=== PATIENT | female | born 1945 | race Caucasian/White ===

== ENCOUNTER 2017-10-21 00:51 | Observation (INO) ==
--- NOTE | 2017-10-21 01:15 | Emergency Department Note ---
Disposition Clinical Impression: Atrial fibrillation with RVR Disposition: Admitted As Inpatient Condition: Good Referrals: Obi Ellis MD [Primary Care Provider] - Forms: ED Satisfaction Letter Time of Disposition: 02:19 Arrhythmia/Palpitations HPI - General Chief Complaint: ED Arrhythmia/Palpitations Stated Complaint: Chest Pain Time Seen by Provider: 10/21/17 01:05 Source: patient, family Mode of arrival: ambulatory Limitations: no limitations Nursing Notes Reviewed: Yes Vital Signs Reviewed: Yes - History of Present Illness HPI Narrative: 72-year-old white female with onset of palpitations around midnight tonight. No chest pain. No shortness of breath. She had recent sinusitis and just finished a prescription for Keflex yesterday. No other symptoms or complaints. No history of atrial fibrillation. 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 Duration: intermittent Severity: moderate Context: occurred during rest Associated symptoms: Reports: denies other symptoms - Related Data Home Medications Medication Instructions Recorded Confirmed Ascorbic Acid [Vitamin C] 1,000 units PO DAILY 07/18/15 10/10/17 Atorvastatin [Lipitor] 20 mg PO HS 07/18/15 10/10/17 Canagliflozin [Invokana] 100 mg PO DAILY 07/18/15 10/10/17 Carvedilol [Coreg] 3.125 tab PO DAILY 07/18/15 10/10/17 Celecoxib [Celebrex] 200 mg PO DAILY 07/18/15 10/10/17 Cholecalciferol (Vitamin D3) 2,000 mg PO DAILY 07/18/15 10/10/17 [Vitamin D] Cyanocobalamin (Vitamin B-12) 1,000 mcg PO DAILY 07/18/15 10/10/17 [Vitamin B-12] Losartan [Cozaar] 25 mg PO DAILY 07/18/15 10/10/17 [place]-3S/Dha/Epa/Fish Oil [Fish 600 mg PO DAILY 07/18/15 10/10/17 Oil 1,200 mg Softgel] Omeprazole [PriLOSEC] 20 mg PO DAILY 07/18/15 10/10/17 SitaGLIPtin [Januvia] 100 mg PO DAILY 07/18/15 10/10/17 Vit C/Vit E/Lutein/Min/[place]-3 1 cap PO DAILY 01/04/17 10/10/17 [Ocuvite Softgel] Buspirone HCl [Buspar] 2.5 mg PO DAILY 09/14/17 10/10/17 Loratadine [Allergy Relief] 10 mg PO DAILY 10/10/17 10/10/17 Previous Rx's Medication Instructions Recorded Cephalexin [Keflex] 500 mg PO TID #30 capsule 10/10/17 Meclizine [Antivert] 12.5 mg PO TID PRN #15 tablet 10/10/17 predniSONE [PredniSONE] 10 mg PO DAILY #8 tablet 10/10/17 Allergies Allergy/AdvReac Type Severity Reaction Status Date / Time Penicillins [PCN] Allergy Rash Verified 10/10/17 13:08 acetaminophen [From Percocet] AdvReac Nausea Verified 10/10/17 13:08 Oxycodone [From Percocet] AdvReac Vomiting Verified 10/10/17 13:08 All systems ED: reviewed and negative except as stated. Constitutional: Denies: fever, chills ENT ED: Denies: ear pain, throat pain Cardiovascular: Reports: palpitations. Denies: chest pain Respiratory: Denies: cough, dyspnea Gastrointestinal: Denies: abdominal pain, nausea, vomiting Neurological: Denies: weakness, numbness, paresthesias Past Medical History - Past Medical History Medical history: Reports: no medical history, diabetes, hypertension Surgical history: Reports: cholecystectomy, hysterectomy, other Psychiatric history: Reports: anxiety - Social History Smoking Status: Never smoker Smokeless Tobacco Status: No Alcohol use: Reports: none Drug use: Reports: none Physical Exam - General Limitations: no limitations General appearance: alert, in no apparent distress - Head Head exam: atraumatic, normocephalic - Eye Eye exam: Present: PERRL, EOMI - ENT ENT exam: normal oropharynx, mucous membranes moist - Neck Neck exam: Present: normal inspection, full ROM, trachea midline. Absent: lymphadenopathy, thyromegaly - Respiratory Respiratory exam: Present: normal lung sounds bilaterally. Absent: respiratory distress, wheezes - Cardiovascular Cardiovascular exam: Present: tachycardia (1:15), irregular rhythm. Absent: systolic murmur, diastolic murmur, gallop - Abdominal Exam Abdominal exam: Present: soft, Non-Tender, normal bowel sounds. Absent: organomegaly, mass - Extremities Exam Extremities exam: Present: normal inspection, full ROM, normal capillary refill. Absent: pedal edema - Neurological Exam Neurological exam: Present: alert, oriented X3, normal gait. Absent: motor sensory deficit - Psychiatric Psychiatric exam: Present: normal affect, normal mood - Skin Skin exam: Present: warm, dry, intact, normal color Course - Reevaluation(s) Reevaluation #1: Heart rate is improved, it is currently 80, she still in atrial fibrillation. She is otherwise asymptomatic. I discussed the need for hospitalization with the patient and her . She is agreeable. I talked with Dr. Flor. He is accepted patient for observation admission. Time: 02:16 Vital Signs Temperature 98.7 F 10/21/17 00:58 Pulse Rate 94 10/21/17 00:58 Respiratory Rate 16 10/21/17 00:58 Blood Pressure 169/96 10/21/17 00:58 O2 Sat by Pulse Oximetry 99 10/21/17 00:58 Temperature 98.7 F 10/21/17 02:15 Pulse Rate 88 10/21/17 02:15 Respiratory Rate 16 10/21/17 02:15 Blood Pressure 153/76 10/21/17 02:15 O2 Sat by Pulse Oximetry 99 10/21/17 02:15 Oxygen Delivery Oxygen Delivery Room Air Arrhythmia/Palpitations - [facility] Narrative Medical decision making narrative: She was bolused with Cardizem and placed on a Cardizem drip. Her heart rate has decreased to 80. She will be admitted for observation for further treatment. I have discussed the case with Dr. Flor. He has accepted patient for observation admission. She will be given a dose of digoxin 0.25 mg IV prior to transfer to the floor. - Differential Diagnosis Differential Diagnosis: Likely: palpitations, anxiety, sinus tachycardia, artial arrhythmia, ventricular premature beats, supraventricular tachycardia, metabolic/electrolyte disturbance - Lab Data Lab results reviewed: Yes I reviewed the patient's lab results. Result diagrams: 10/21/17 01:26 10/21/17 01:26 Lab Results 10/21/17 10/21/17 10/21/17 Range/Units 01:26 01:26 01:26 WBC 6.8 (4.3-11.1) K/mcL RBC 5.06 H (3.82-4.97) M/mcL Hgb 15.1 (11.5-15.4) g/dL Hct 45.4 H (35.3-44.9) % MCV 89.7 (83.0-100.0) fL MCH 29.8 (28.0-33.3) pg MCHC 33.3 (31.6-35.5) g/dL RDW 13.2 (11.5-14.5) % Plt Count 148 (140-400) K/mcL MPV 10.9 (9.4-12.4) fL Immature Gran % 0.6 (0-4) % Seg Neutrophils % 48.6 % Lymphocytes % 38.8 % Monocytes % 9.3 % Eosinophils % 2.1 % Basophils % 0.6 % Neutrophils # 3.3 (1.6-8.9) K/mcL Lymphocytes # 2.6 (0.6-4.6) K/mcL Monocytes # 0.6 (0.0-1.3) K/mcL Eosinophils # 0.1 (0.0-0.6) K/mcL Basophils # 0.0 (0.0-0.2) K/mcL PT 11.5 (9.4-12.1) Seconds INR 1.1 APTT 29.8 (26.0-36.0) Seconds Sodium 141 (136-145) mEq/L Potassium 4.1 (3.5-4.5) mEq/L Chloride 105 (98-109) mEq/L Carbon Dioxide 22 (19-29) mEq/L BUN 18 (7-20) mg/dL Creatinine 0.83 (0.57-1.11) mg/dL Est GFR ( Amer) > 60 (> 60) Est GFR (Non-Af Amer) > 60 (> 60) BUN/Creatinine Ratio 22 (6-26) Glucose 103 H (70-99) mg/dL Calculated Osmolality 294 (280-300) Calcium 10.0 (8.6-10.8) mg/dL Total Bilirubin 0.6 (0.2-1.2) mg/dL AST 21 (5-34) Units/L ALT 18 (0-55) Units/L Alkaline Phosphatase 92 (38-126) Units/L Troponin I (0-0.03) ng/mL B-Natriuretic Peptide (0-100) pg/mL Serum Total Protein 8.7 H (6.0-8.3) g/dL Albumin 4.2 (3.5-5.0) g/dL Globulin 4.5 H (2.4-3.5) g/dL Albumin/Globulin Ratio 0.9 L (1.1-2.2) 10/21/17 10/21/17 Range/Units 01:26 01:26 WBC (4.3-11.1) K/mcL RBC (3.82-4.97) M/mcL Hgb (11.5-15.4) g/dL Hct (35.3-44.9) % MCV (83.0-100.0) fL MCH (28.0-33.3) pg MCHC (31.6-35.5) g/dL RDW (11.5-14.5) % Plt Count (140-400) K/mcL MPV (9.4-12.4) fL Immature Gran % (0-4) % Seg Neutrophils % % Lymphocytes % % Monocytes % % Eosinophils % % Basophils % % Neutrophils # (1.6-8.9) K/mcL Lymphocytes # (0.6-4.6) K/mcL Monocytes # (0.0-1.3) K/mcL Eosinophils # (0.0-0.6) K/mcL Basophils # (0.0-0.2) K/mcL PT (9.4-12.1) Seconds INR APTT (26.0-36.0) Seconds Sodium (136-145) mEq/L Potassium (3.5-4.5) mEq/L Chloride (98-109) mEq/L Carbon Dioxide (19-29) mEq/L BUN (7-20) mg/dL Creatinine (0.57-1.11) mg/dL Est GFR ( Amer) (> 60) Est GFR (Non-Af Amer) (> 60) BUN/Creatinine Ratio (6-26) Glucose (70-99) mg/dL Calculated Osmolality (280-300) Calcium (8.6-10.8) mg/dL Total Bilirubin (0.2-1.2) mg/dL AST (5-34) Units/L ALT (0-55) Units/L Alkaline Phosphatase (38-126) Units/L Troponin I 0.02 (0-0.03) ng/mL B-Natriuretic Peptide 126 H (0-100) pg/mL Serum Total Protein (6.0-8.3) g/dL Albumin (3.5-5.0) g/dL Globulin (2.4-3.5) g/dL Albumin/Globulin Ratio (1.1-2.2) - Radiology Data Radiology results reviewed: Yes I reviewed the patient's radiology results. - EKG Data EKG attestation: Yes I reviewed and interpreted this EKG. EKG results narrative: Atrial fibrillation, rate of 88, minimal ST segment segment depression over the lateral precordium. Rhythm strip shows atrial fibrillation with a rate of 88, a QRS 98 ms with no other ectopy as interpreted by me. No old EKG available for comparison. Critical Care Time Critical Care Time: Yes Total Critical Care Time: 30 Attestation: Critical care time includes my initial evaluation, reassessment, review of laboratory, EKG, x-ray, consultation with the patient regarding admission, consultation with the hospitalist regarding admission. No procedures were included
[2017-10-21 01:52] LABS: Basophils % 0.6 %; Eosinophils # 0.1 K/mcL (0.0-0.6); Eosinophils % 2.1 %; Hematocrit 45.4 % (35.3-44.9); Hemoglobin 15.1 g/dL (11.5-15.4); Immature Granulocytes % 0.6 % (0-4); Lymphocytes # 2.6 K/mcL (0.6-4.6); Lymphocytes % 38.8 %; Mean Corpuscular HGB Conc 33.3 g/dL (31.6-35.5); Mean Corpuscular Hemoglobin 29.8 pg (28.0-33.3); Mean Corpuscular Volume 89.7 fL (83.0-100.0); Mean Platelet Volume 10.9 fL (9.4-12.4); Monocytes # 0.6 K/mcL (0.0-1.3); Monocytes % 9.3 %; Neutrophils # 3.3 K/mcL (1.6-8.9); Platelet Count 148 K/mcL (140-400); Red Blood Count 5.06 M/mcL (3.82-4.97); Red Cell Distribution Width 13.2 % (11.5-14.5); Segmented Neutrophils % 48.6 %
[2017-10-21 01:53] LABS: INR 1.1; Prothrombin Time 11.5 Seconds (9.4-12.1)
[2017-10-21 01:56] LABS: Activated Partial Thrombo Time 29.8 Seconds (26.0-36.0)
[2017-10-21 02:05] LABS: Alanine Aminotransferase 18 Units/L (0-55); Albumin 4.2 g/dL (3.5-5.0); Albumin/Globulin Ratio 0.9 (1.1-2.2); Alkaline Phosphatase 92 Units/L (38-126); Aspartate Amino Transferase 21 Units/L (5-34); BUN/Creatinine Ratio 22 (6-26); Bilirubin,Total 0.6 mg/dL (0.2-1.2); Blood Urea Nitrogen 18 mg/dL (7-20); Carbon Dioxide 22 mEq/L (19-29); Chloride 105 mEq/L (98-109); Globulin 4.5 g/dL (2.4-3.5); Glucose 103 mg/dL (70-99); Osmolality,Calculated 294 (280-300); Potassium 4.1 mEq/L (3.5-4.5); Sodium 141 mEq/L (136-145); Total Protein 8.7 g/dL (6.0-8.3); eGFR For African Americans > 60 (> 60); eGFR For Non-African Americans > 60 (> 60)
[2017-10-21] MEDS ORDERED: *HR* Digoxin 0.5 MG/2 ML AMPUL IVP ONE (02:20)
[2017-10-21] MEDS ORDERED: *HR* Enoxaparin 40 MG/0.4 ML SYRINGE SQ ONE (02:20)
[2017-10-21] MEDS ORDERED: *HR* Enoxaparin 100 MG/ML SYRINGE SQ ONE (02:30)
[2017-10-21] MEDS ORDERED: Naloxone 0.4 MG/ML INJ IVP PRN (04:28)
[2017-10-21] MEDS ORDERED: 0.9 % Sodium Chloride 1,000 ML IVC SCH (04:28)
[2017-10-21] MEDS: [Fish Oil 1,200 Mg PO SCH (07:45)
[2017-10-21] MEDS: Loratadine 10 MG TABLET PO SCH (07:54)
[2017-10-21] MEDS: Cholecalciferol (D-3) 1,000 UNIT TABLET PO SCH (07:54)
[2017-10-21] MEDS: Cyanocobalamin (B-12) 1,000 MCG TABLET PO SCH (07:54)
[2017-10-21] MEDS: Multivit/Ca/Min/Fe/FA 1 TAB TABLET PO SCH (07:54)
[2017-10-21] MEDS ORDERED: *HR* Glimepiride 2 MG TABLET PO SCH (09:00)
[2017-10-21] MEDS ORDERED: *HR* SitaGLIPtin 100 MG TABLET PO SCH (09:00)
--- NOTE | 2017-10-21 14:19 | Internal Med History&Physical ---
Date of Encounter: 10/21/17 Time of Encounter: 13:50 Assessment and Plan (1) Atrial fibrillation with RVR Current visit: Yes Status: Acute Now resolved and back in NSR. Will order TSH and continue telemetry monitoring. We will change from Coreg to Toprol-XL 25 mg daily. (2) Hypertension Current visit: Yes Status: Chronic Continue Cozaar and changed to Toprol as per above. Qualifiers: Hypertension type: essential hypertension Qualified Code(s): I10 - Essential (primary) hypertension (3) DM type 2 (diabetes mellitus, type 2) Current visit: Yes Status: Chronic Hemoglobin A1c was 6.1% on 05/25/2017. Continue Januvia and Amaryl. Qualifiers: Diabetes mellitus complication status: without complication Diabetes mellitus sample driller insulin use: without usp use Qualified Code(s): E11.9 - Type 2 diabetes mellitus without complications Internal Medicine - H&P: HPI Chief complaint: Palpitations Admitted From: Emergency Dept Plans for Post Hospital Care: Home History of present illness: Ms. Ortiz is a 72 year old female who came to emergency room stating she had onset of palpitation sensation shortly after midnight while at leisure. And it did not resolve after a few minutes she came to emergency room. She was found to have AF with RVR. She was given dose of Cardizem and Lanoxin and started on a Cardizem drip. She was admitted to [facility] for ongoing care needs. She converted to normal sinus rhythm after arriving to [facility] floor and has remained in NSR. She denies previous similar episodes but states she did have a very brief sensation of arrhythmia twice within 2-3 days approximately 3-4 weeks ago. Cardiovascular history is pertinent for hypertension but she denies DC heart failure angina DVT or pulmonary embolus. She has had no unusual medication ingestions and no acute illnesses. She does not use alcohol. She was told in the past she had a "thyroid problem" but does not know details. Past Med Surg Social Fam HX - Past Medical History Medical history: atrial fibrillation, diabetes, hyperlipidemia, hypertension Psychiatric history: anxiety - Past Surgical History Surgical History: cholecystectomy, hysterectomy, orthopedic, other, sinus surgery, other - Social History Smoking Status: Never smoker Smokeless Tobacco Status: No Alcohol use: none Drug use: none Internal Medicine - H&P: Meds Ascorbic Acid [Vitamin C] 1,000 units PO DAILY 07/18/15 [History] Atorvastatin [Lipitor] 40 mg PO HS 07/18/15 [History] Canagliflozin [Invokana] 100 mg PO DAILY 07/18/15 [History] Carvedilol [Coreg] 3.125 tab PO DAILY 07/18/15 [History] Celecoxib [Celebrex] 200 mg PO DAILY 07/18/15 [History] Cholecalciferol (Vitamin D3) [Vitamin D] 2,000 mg PO DAILY 07/18/15 [History] Cyanocobalamin (Vitamin B-12) [Vitamin B-12] 1,000 mcg PO DAILY 07/18/15 [ History] Losartan [Cozaar] 25 mg PO DAILY 07/18/15 [History] [place]-3S/Dha/Epa/Fish Oil [Fish Oil 1,200 mg Softgel] 600 mg PO DAILY 07/18/15 [ History] Omeprazole [PriLOSEC] 20 mg PO DAILY 07/18/15 [History] SitaGLIPtin [Januvia] 100 mg PO DAILY 07/18/15 [History] Vit C/Vit E/[place]utein/Min/[place]-3 [Ocuvite Softgel] 1 cap PO DAILY 01/04/17 [ History] Buspirone HCl [Buspar] 2.5 mg PO DAILY 09/14/17 [History] Loratadine [Allergy Relief] 10 mg PO DAILY 10/10/17 [History] Glimepiride [Amaryl] 1 mg PO QDPC 10/21/17 [History] 3 Allergy/AdvReac Type Severity Reaction Status Date / Time Penicillins [PCN] Allergy Rash Verified 10/10/17 13:08 Oxycodone [From Percocet] AdvReac Vomiting Verified 10/10/17 13:08 All Systems PM: A 10-system review of systems was performed and is negative for pertinent findings except as documented above in the HPI. Review of systems: Gen.: She states her weight has been stable past few months Cardiovascular: As per history of present illness Respiratory: She is a lifelong nonsmoker and has no known chronic lung disease GI: She has GERD. She has had cholecystectomy. She denies disorders of her liver or exocrine pancreas : She has had kidney stones the past. She denies other kidney or bladder disorders Neurologic: She has had a migraine headache. She denies large distribution strokes or seizures. Endocrine: She has had a "thyroid problem but she does not know specific diagnosis. She was diagnosed with DM 2 approximately 2012. She has hyperlipidemia. Hematology/oncology: She denies blood disorders cancers or anemia Psychiatric: She has anxiety but denies depression or other mental health issues Musk skeletal: She has DJD. She has had surgery on her foot and knee he denies gout. - Constitutional Vitals: Temp Pulse Resp BP Pulse Ox 98.5 F 70 16 110/67 96 10/21/17 11:00 10/21/17 11:00 10/21/17 11:00 10/21/17 11:00 10/21/17 11:00 Exam: Gen.: She is a well-developed well-nourished female resting comfortably in bed who appears in no acute distress HEENT: Head is atraumatic and normocephalic. Eyes: EOMI. There is no scleral icterus. Mouth: Mucosa is moist. Neck: Supple and nontender. There is no thyromegaly or adenopathy noted. Heart: Regular without murmurs gallops or ectopics Lungs: No wheezes or crackles are heard. Abdomen: Soft and nontender. No masses or guarding are noted. Extremities: There is no cyanosis edema or clubbing noted. Dorsalis pedis and posttibial pulses are 1-2 over 2 bilaterally. Neurologic: Mental status: She is talkative and a good historian. Cranial nerves: Smile is symmetric. Forehead wrinkles bilaterally. Tongue protrudes midline. EOMI. Motor: There is no pronator drift. Cerebellar: Finger to nose is intact bilaterally. Skin: Warm and dry Internal Med - H&P Results - Labs CBC & Chem 7: 10/21/17 01:26 10/21/17 01:26 Labs: Cardiac Enzymes 10/21/17 10/21/17 Range/Units 05:44 10:25 Troponin I 0.02 0.02 (0-0.03) ng/mL
[2017-10-21] MEDS: *HR* SitaGLIPtin 25 MG TABLET PO SCH (15:18)
[2017-10-21] MEDS: Metoprolol XL (24 HR) Succ 25 MG TAB.ER.24H PO SCH (15:30)
[2017-10-22 06:05] LABS: Alanine Aminotransferase 16 Units/L (0-55); Albumin 3.5 g/dL (3.5-5.0); Alkaline Phosphatase 67 Units/L (38-126); Aspartate Amino Transferase 17 Units/L (5-34); BUN/Creatinine Ratio 20 (6-26); Bilirubin,Total 0.6 mg/dL (0.2-1.2); Blood Urea Nitrogen 14 mg/dL (7-20); Calcium 9.6 mg/dL (8.6-10.8); Carbon Dioxide 25 mEq/L (19-29); Chloride 107 mEq/L (98-109); Globulin 3.6 g/dL (2.4-3.5); Glucose 83 mg/dL (70-99); Magnesium 1.9 mg/dL (1.6-2.6); Osmolality,Calculated 294 (280-300); Potassium 3.7 mEq/L (3.5-4.5); Sodium 142 mEq/L (136-145); Total Protein 7.1 g/dL (6.0-8.3); eGFR For African Americans > 60 (> 60); eGFR For Non-African Americans > 60 (> 60)
[2017-10-22 06:27] LABS: Thyroid Stimulating Hormone 1.639 mcIU/mL (0.350-4.840)
[2017-10-22 07:06] VITALS: BP 120/71
[2017-10-22] MEDS ORDERED: *HR* Glimepiride 2 MG TABLET PO SCH (08:15)
[2017-10-22] MEDS: [Fish Oil 1,200 Mg PO SCH (09:00)
[2017-10-22] MEDS: Cholecalciferol (D-3) 1,000 UNIT TABLET PO SCH (09:01)
[2017-10-22] MEDS: *HR* SitaGLIPtin 25 MG TABLET PO SCH (09:01)
[2017-10-22] MEDS: Cyanocobalamin (B-12) 1,000 MCG TABLET PO SCH (09:01)
[2017-10-22] MEDS: Metoprolol XL (24 HR) Succ 25 MG TAB.ER.24H PO SCH (09:01)
[2017-10-22] MEDS: Loratadine 10 MG TABLET PO SCH (09:02)
[2017-10-22] MEDS: Multivit/Ca/Min/Fe/FA 1 TAB TABLET PO SCH (09:02)
--- NOTE | 2017-10-22 09:28 | Electrocardiograph Report ---
[address] [place], [place] [address] Test Date: 2017-10-21 Pat Name: Rosy Ortiz Department: [id number] Room: [facility] Gender: F Talent Development Director: Dario : 1945 Requested By: Pratik Garcia Order Number: [id number] Reading MD: Sarah Fair Measurements Intervals [place] Rate: 88 P: MI: 0 QRS: 48 QRSD: 98 T: 29 QT: 356 QTc: 401 Interpretive Statements ATRIAL FIBRILLATION MINIMAL ST DEPRESSION ABNORMAL RHYTHM ECG Electronically Signed On 10-22-2017 9:26:44 EST by Sarah Fair
--- NOTE | 2017-10-22 09:31 | Discharge Summary ---
Date of Encounter: 10/22/17 Time of Encounter: 09:20 - Discharge Diagnosis (1) Atrial fibrillation with RVR Priority: Primary Status: Resolved (2) Hypertension Priority: Secondary Status: Chronic Qualifiers: Hypertension type: essential hypertension Qualified Code(s): I10 - Essential (primary) hypertension (3) DM type 2 (diabetes mellitus, type 2) Priority: Secondary Status: Chronic Qualifiers: Diabetes mellitus complication status: without complication Diabetes mellitus residential insulin use: without watermaster use Qualified Code(s): E11.9 - Type 2 diabetes mellitus without complications - Discharge Medications Prescriptions: Metoprolol XL (24 HR) Succ [Toprol XL] 50 mg PO DAILY #30 tab.er.24h Home Medications: Ascorbic Acid [Vitamin C] 1,000 units PO DAILY 07/18/15 [History] Atorvastatin [Lipitor] 40 mg PO HS 07/18/15 [History] Canagliflozin [Invokana] 100 mg PO DAILY 07/18/15 [History] Celecoxib [Celebrex] 200 mg PO DAILY 07/18/15 [History] Cholecalciferol (Vitamin D3) [Vitamin D3] 2,000 mg PO DAILY 07/18/15 [History] Cyanocobalamin (Vitamin B-12) [Vitamin B12] 1,000 mcg PO DAILY 07/18/15 [History ] Losartan [Cozaar] 25 mg PO DAILY 07/18/15 [History] [place]-3S/Dha/Epa/Fish Oil [Fish Oil 1,200 mg Softgel] 600 mg PO DAILY 07/18/15 [ History] Omeprazole [PriLOSEC] 20 mg PO DAILY 07/18/15 [History] SitaGLIPtin [Januvia] 100 mg PO DAILY 07/18/15 [History] Vit C/Vit E/Lutein/Min/[place]-3 [Ocuvite Softgel] 1 cap PO DAILY 01/04/17 [ History] Buspirone HCl [Buspar] 2.5 mg PO DAILY 09/14/17 [History] Loratadine [Allergy Relief] 10 mg PO DAILY 10/10/17 [History] Glimepiride [Amaryl] 1 mg PO QDPC 10/21/17 [History] Metoprolol XL (24 HR) Succ [Toprol XL] 50 mg PO DAILY #30 tab.er.24h 10/22/17 [ Rx] Allergies/Adverse Reactions: 3 Allergy/AdvReac Type Severity Reaction Status Date / Time Penicillins [PCN] Allergy Rash Verified 10/10/17 13:08 Oxycodone [From Percocet] AdvReac Vomiting Verified 10/10/17 13:08 Date of admission: 10/21/17 02:37 Primary care physician: Obi Ellis MD - Patient Status Disposition: Home, Self-Care Condition: Good Functional capacity at discharge: independent ambulation Overall status at discharge: patient is progressing back to baseline - Discharge Instructions Follow Up With: Obi Ellis MD [Primary Care Provider] - 1 week - Diet and Activity Activity: resume usual activities as tolerated Diet: advance to your usual diet Hospital course: Ms. Ortiz is a 72 year old female who came to emergency room stating she had onset of palpitation sensation shortly after midnight while at leisure. And it did not resolve after a few minutes she came to emergency room. She was found to have AF with RVR. She was given dose of Cardizem and Lanoxin and started on a Cardizem drip. She was admitted to [facility] for ongoing care needs. Initial orders were written by the emergency room physician. I saw her on October 21 and performed a history and physical. She had returned to normal sinus rhythm by the time I saw her. I changed her from Coreg to Toprol-XL. Cozaar was continued. Her blood pressure remained stable. She remained in normal sinus rhythm for the remainder of hospitalization. TSH returned normal at 1.639. There were no new problems and on October 22 she was stable for discharge home. She will follow with her PCP Dr. Ellis within 1 week. He can discuss with her the need for OAC and further workup such as an echocardiogram. - Time Spent with Patient Total time spent providing and/or coordinating discharge services: - Constitutional Vitals: Temp Pulse Resp BP Pulse Ox 97.9 F 66 16 120/71 97 10/22/17 07:06 10/22/17 07:06 10/22/17 07:06 10/22/17 07:06 10/22/17 07:06
== END 2017-10-22 10:10 | disposition home or self-care (01) ==
LOC: INPPIK 00:51 → EMEROOPIK 00:51 → INPPIK 03:30
PROVIDERS: ADMIT Emergency Medicine; ATTEND Internal Medicine